=== PATIENT | female | born 1950 | race African-American/Black ===

== ENCOUNTER 2020-02-27 05:56 | Day surgery (SDC) | payer MEDICARE, MEDICAID ==
--- NOTE | 2020-02-23 12:16 | Opthalmology H&P ---
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 Roman Blank MD Feb 23, 2020 12:16
--- NOTE | 2020-02-23 12:18 | Pre-Procedure Note/Attestation ---
Pre-Procedure Note/Attestation Complete Prior to Procedure Planned Procedure: left Procedure Narrative: Cataract extraction with intraocular lens implant left eye Indications for Procedure Pre-Operative Diagnosis: Nuclear sclerotic cataract left eye Attestation I attest that I discussed the nature of the procedure; its benefits; risks and complications; and alternatives (and the risks and benefits of such alternatives), prior to the procedure, with the patient (or the patient's legal motor vehicle field representative). I attest that, if there was a reasonable possibility of needing a blood transfusion, the patient (or the patient's legal motor vehicle field representative) was given the [facility] standardized written summary, pursuant to the Jason Gricel Blood Safety Act ([place] Health and Safety Code # 1645, as amended). I attest that I re-evaluated the patient just prior to the surgery and that there has been no change in the patient's H&P, except as documented below: Roman Blank MD Feb 23, 2020 12:18
[2020-02-27] VITALS (8 sets, daily range): BP systolic 122–161; BP diastolic 68–97
[~2020-02-27] VITALS: Ht 165.1 cm; Wt 88.5 kg
[~2020-02-27 05:56] MED LIST: AMLODIPINE BESYL5 MG ORAL; ASPIRIN81 MG ORAL; CARVEDILOL12.5 MG ORAL; FLUTICASONE PRO16 G1 NASAL; HYDROCHLOROTHIA25 MG ORAL; LOSARTAN POTASS50 MG ORAL; METFORMIN HCL500 M1 ORAL; TRELEGY ELLIPTA PO
[2020-02-27] MEDS ORDERED: LR 1000ml ONE (05:57)
[2020-02-27] MEDS ORDERED: Pilocarpine 1% Opth 15ml Soln ONE (05:57)
[2020-02-27] MEDS ORDERED: prednisoLONE acetate 1% Opth Susp 1ml ONE (05:57)
[2020-02-27] MEDS ORDERED: Maxitrol Opth Oint 3.5gm ONE (05:57)
[2020-02-27] MEDS ORDERED: Proparacaine 0.5% Opth Soln 15ml LEFT EYE ONE (07:00)
[2020-02-27] MEDS ORDERED: Tetracaine 0.5% Opth 4ml Soln LEFT EYE ONE (07:00)
[2020-02-27] MEDS ORDERED: Akten 3.5% 1ml Btl LEFT EYE ONE (07:00)
[2020-02-27] MEDS: Diclofenac Sod 0.1% Op Soln LEFT EYE SCH ×3 (07:06→07:23)
[2020-02-27] MEDS: Phenylephrine 10% Opth Soln 5ml LEFT EYE SCH ×3 (07:06→07:23)
[2020-02-27] MEDS: Tropicamide 1% Opth 15ml Soln LEFT EYE SCH ×3 (07:07→07:23)
[2020-02-27] MEDS: Tobramycin Op Soln 0.3% 5ml LEFT EYE SCH ×3 (07:07→07:23)
--- NOTE | 2020-02-27 07:22 | Anethesia Preoperative Eval ---
Anesthesia Pre-op PMH/ROS General Date of Evaluation: Feb 27, 2020 Time of Evaluation: 07:19 Anesthesiologist: Tejas ASA Score: ASA 3 Mallampati Score Class I : Soft palate, uvula, fauces, pillars visible Class II: Soft palate, uvula, fauces visible Class III: Soft palate, base of uvula visible Class IV: Only hard plate visible Mallampati Classification: Class II Surgeon: Rosamaria Diagnosis: L eye cataract Surgical Procedure: Cataract extraction Anesthesia History: none Family History: no anesthesia problems Allergies: Coded Allergies: SULFA (SULFONAMIDE ANTIBIOTICS) (Verified Allergy, Severe, TONGUE SWELLING, 02/27/20) Medications: see eMAR Patient NPO?: Yes Past Medical History Cardiovascular: Reports: HTN; Denies: CAD, SC, valve dz, arrhythmia, other Pulmonary: Denies: asthma, COPD, ILAN, other Gastrointestinal/Genitourinary: Reports: GERD; Denies: CRI, ESRD, other Neurologic/Psychiatric: Reports: depression/anxiety; Denies: dementia, CVA, TIA, other Endocrine: Reports: DM; Denies: hypothyroidism, steroids, other HEENT: Reports: cataract (L), cataract (R); Denies: glaucoma, [place] (L), [place] (R), other Hematology/Immune: Reports: anemia - mild; Denies: DVT, bleeding disorder, other Musculoskeletal/Integumentary: Reports: OA Other: obesity PMH Narrative: as above PSxH Narrative: see chart Anesthesia Pre-op Phys. Exam Physician Exam Last Vital Signs Date Time Temp Pulse Resp B/P (MAP) Pulse Ox O2 Delivery O2 Flow Rate FiO2 02/27/20 07:10 Room Air 02/27/20 07:09 97.5 91 20 137/74 99 Constitutional: NAD Neurologic: CN 2-12 intact Cardiovascular: RRR, no M/R/G Respiratory: CTA Gastrointestinal: S/NT/ND Airway Exam Mallampati Score: Class II MO: limited Neck: stiff ROM: limited Teeth: missing Dentures: no upper, no lower Anesthesia Pre-op A/P Labs see chart Studies Pre-op Studies: EKG - SR Risk Assessment & Plan Assessment: ASA 3 Plan: MAC Status Change Before Surgery: No Pre-Antibiotics Drug: none Kerwin Lazaro MD Feb 27, 2020 07:22
[2020-02-27] MEDS ORDERED: fentaNYL 100 mcg/2 mL IV PRN (07:30)
[2020-02-27] MEDS ORDERED: LR 1000ml 1,000 ML IVLG SCH (07:30)
[2020-02-27] MEDS ORDERED: Midazolam 2mg/2ml Inj ONE (08:32)
[2020-02-27] MEDS ORDERED: fentaNYL 100 mcg/2 mL IV ONE (08:32)
--- NOTE | 2020-02-27 09:36 | Immediate Post-Op Evaluation ---
Immediate Post-Op Evalulation Immediate Post-Op Evalulation Procedure: L eye cataract extraction with IOL Date of Evaluation: Feb 27, 2020 Time of Evaluation: 09:34 IV Fluids: 250 Blood Products: none Estimated Blood Loss: none Urinary Output: none Blood Pressure Systolic: 137 Blood Pressure Diastolic: 86 Pulse Rate: 80 Respiratory Rate: 20 O2 Sat by Pulse Oximetry: 98 Temperature (Fahrenheit): 97.6 Pain Score (1-10): 1 Nausea: No Vomiting: No Complications none Patient Status: awake, none Kerwin Lazaro MD Feb 27, 2020 09:36
--- NOTE | 2020-02-27 11:25 | 48 Hour Post Anesthesia Eval ---
Post Anesthesia Evaluation Procedure: L eye cataract extraction with IOL Date of Evaluation: Feb 27, 2020 Time of Evaluation: 11:24 Blood Pressure Systolic: 122 0: 78 Pulse Rate: 72 Respiratory Rate: 20 Temperature (Fahrenheit): 97.6 O2 Sat by Pulse Oximetry: 98 Airway: patent Nausea: No Vomiting: No Pain Intensity: 2 Hydration Status: adequate Cardiopulmonary Status: stable Mental Status/LOC: patient returned to baseline Follow-up Care/Observations: n/a Post-Anesthesia Complications: none Follow-up care needed: ready to discharge Kerwin Lazaro MD Feb 27, 2020 11:25
[2020-02-27] MEDS ORDERED: EPINEPHrine 1mg/1ml Amp ONE (12:34)
[2020-02-27] MEDS ORDERED: BSS 500ml btl ONE (12:35)
[2020-02-27] MEDS ORDERED: Sodium Hyaluronate 10 mg/ml 0.85ml ONE (12:35)
[2020-02-27] MEDS ORDERED: Povidone-Iodine 5% opth solution ONE (12:35)
[2020-02-27] MEDS ORDERED: BSS 15ml BTL ONE (12:35)
[2020-02-27] MEDS ORDERED: Carbachol 0.01% Op Soln 1.5ml vial ONE (12:39)
--- NOTE | 2020-02-28 08:58 | Brief Operative Note ---
Immediate Post Operative Note Operative Note Chief Complaint: Blurry vision Pre-op Diagnosis: Nuclear sclerotic cataract left eye Procedure: Cataract extraction with IOL implant left eye Post-op Diagnosis: Pseudo OS Findings: consistent w/pre-op dx studies Surgeon: Roman Blank MD Anesthesiologist: Kerwin Lazaro MD Anesthesia: MAC Specimen: none Complications: none Condition: stable Fluids: LR Estimated Blood Loss: none Drains: none Implant(s) used?: Yes - IOL-OS Roman Blank MD Feb 28, 2020 08:58
--- NOTE | 2020-02-28 09:00 | Operative Note - PDOC ---
Operative Note Operative Note Chief Complaint: Blurry vision Pre-op Diagnosis: Nuclear sclerotic cataract left eye Procedure: Cataract extraction with IOL implant left eye Post-op Diagnosis: Pseudo OS Operative Findings: consistent w/pre-op dx studies Surgeon: Roman Blank MD Anesthesiologist: Kerwin Lazaro MD Anesthesia: MAC Specimen: none Complications: none Condition: stable Fluids: LR Estimated Blood Loss: none Drains: none Implant(s) used?: Yes - IOL-OS Indications for Procedure Nuclear sclerotic cataract left eye Description of Procedure This patient has been complaining visually significant cataract in the left eye with the best corrected visual acuity of 20/60 under moderate glare conditions worse. The patient complains of difficulties with glare in performing activities of daily living and wants to manage personal affairs with comfort and accuracy and see well enough to move with safety at home and outdoors. The risks, benefits and alternatives of the procedure were discussed with the patient in the office prior to scheduling surgery. All questions from the patient were answered after the surgical procedure was explained in detail. The risks of the procedure as explained to the patient include, but are not limited to, pain, infection, bleeding, loss of vision, retinal detachment, need for further surgery, loss of lens nucleus, double vision, etc. Alternative procedures were discussed which include, to do nothing or seek a second opinion. Informed consent for this procedure was obtained from the patient. The patient was referred to a primary care physician for a cardiopulmonary clearance prior to surgery, after proper evaluation was done patient was properly scheduled for outpatient surgery. The patient was brought to the operating room where the anesthesiologist established I.V. lines and cardiac monitoring leads. Mild intravenous sedation was administered. The patient was then prepared with a 5% solution of povidone-iodine to the conjunctival fornix and lashes, and a 5% solution of povidone-iodine to the lids and periorbital skin. The patient was then draped in the usual sterile fashion. A lid speculum was then placed in the operative eye. A keratome blade was then used to create a biplanar incision into the anterior chamber. Viscoelastics was then instilled into the anterior chamber. A capsulorrhexis was then fashioned with an utrata forceps A G 27 cannula was used to hydrodissect and hydro delineate the lens nucleus. Paracentesis incision was made at 3 o'clock with sharp blade. The phacoemulsification unit, after being properly adjusted and tested, was then used to emulsify the nucleus followed by aspiration and irrigation of residual cortical material. Healon was then instilled into the anterior chamber. The corneal wound was then enlarged to the size of the optic with the dusty keratome blade. The intraocular lens was then inspected for right power and size and thought to be satisfactory. Then the lens was gently placed in the capsular bag. Positioning within the capsular bag was confirmed by direct visualization. Optic centration was accomplished with a Sinskey hook. Viscoelastics was removed from the anterior chamber using the irrigation and aspiration unit. The corneal wound was then tested for leaks and none were found. The lid speculum were then removed. Sponge and needle counts were correct. An eye patch and shield were placed over the operative eye. The patient was taken to the recovery room in stable condition. There were no complications. The patient tolerated the procedure well. The patient was then transferred to the ambulatory surgery unit in stable and satisfactory condition, was given detailed written instructions and asked to follow up in the office the next day. Roman Blank MD Feb 28, 2020 09:00
== END 2020-02-27 10:30 | disposition home or self-care (01) ==
LOC: SUR 05:56
DX: H25.12 Age-related nuclear cataract, left eye (principal); Z88.2 Allergy status to sulfonamides; I10 Essential (primary) hypertension; K21.9 Gastro-esophageal reflux disease without esophagitis; E11.9 Type 2 diabetes mellitus without complications; F32.9 Major depressive disorder, single episode, unspecified; F41.9 Anxiety disorder, unspecified; M19.90 Unspecified osteoarthritis, unspecified site
CPT/HCPCS: 66984; 82962; 94003; J0171; J1100; J2250; J2704; J3010; J3370; J7120; U0002; V2632; 94150